=== PATIENT | male | born 1960 ===

== ENCOUNTER 2020-03-28 12:24 | Inpatient (IN) | payer OTHER ==
[2020-03-28 14:02] LABS: Bilirubin,Urine NEG (Negative); Blood,Urine MOD (Negative); Color,Urine Yellow (Yellow); Mucus,Urine FEW /HPF; Protein,Urine <15 mg/dL mg/dL (Negative)
[2020-03-28 14:08] LABS: Basophils % (Auto) 0.7 % (0.0-1.8); Eosinophils # (Auto) 0.2 K/mm3 (0.0-0.4); Eosinophils % (Auto) 3.2 % (0.0-4.3); Hematocrit 40.9 % (35.5-45.6); Hemoglobin 13.8 gm/dl (11.8-15.2); Lymphocytes # (Auto) 1.7 K/mm3 (1.2-5.4); Mean Corpuscular HGB Conc 34 % (32-34); Mean Corpuscular Volume 95 fl (84-94); Monocytes # (Auto) 0.6 K/mm3 (0.0-0.8); Monocytes % (Auto) 11.4 % (0.0-7.3); Platelet Count 276 K/mm3 (140-440); Red Blood Count 4.33 M/mm3 (3.65-5.03); Red Cell Distribution Width 13.8 % (13.2-15.2)
[2020-03-28 14:30] LABS: Albumin 4.8 g/dL (3.9-5); Calcium 10.6 mg/dL (8.4-10.2)
--- NOTE | 2020-03-28 16:45 | Emergency Department Report ---
ED Male HPI - General Chief complaint: Urogenital-Male Stated complaint: BLADDER ISSUE Time Seen by Provider: 03/28/20 16:19 Source: patient Mode of arrival: Ambulatory Limitations: No Limitations - History of Present Illness Initial comments: 60-year-old male with history of hypertension, presents to the ED with report of difficulty urinating. Patient states this is been going for quite some time. Patient had an appointment with Dr. Layton, urologist, 5 days ago and was told to come to the ED emergency room today. Patient states he is been able to urinate drops of urine. Does not currently feel like his bladder is full or distended. Patient does report some hematuria as well. Denies fever. MD Complaint: other -: unknown Radiation: none Severity: severe Consistency: intermittent Improves with: none Worsens with: none urinary retention, blood in urine. denies: fever, nausea/vomiting - Related Data Home Medications Medication Instructions Recorded Confirmed Last Taken Meloxicam [Mobic] 7.5 mg PO PRN 03/24/20 03/28/20 Unknown One-Daily Multi-Vitamin 1 mg PO DAILY 03/24/20 03/28/20 Unknown Simvastatin 40 mg PO DAILY 03/24/20 03/28/20 Unknown Tamsulosin 0.4 mg PO DAILY 03/24/20 03/28/20 Unknown amLODIPine 10 mg PO DAILY 03/24/20 03/28/20 Unknown hydroCHLOROthiazide 12.5 mg PO DAILY 03/24/20 03/28/20 Unknown [Hydrochlorothiazide] lisinopriL [Zestril TAB] 40 mg PO DAILY 03/24/20 03/28/20 Unknown Allergies Allergy/AdvReac Type Severity Reaction Status Date / Time Penicillins AdvReac Intermediate Rash Verified 03/24/20 12:41 ED Review of Systems ROS: Stated complaint: BLADDER ISSUE Other details as noted in HPI Comment: All other systems reviewed and negative Constitutional: denies: chills, fever Gastrointestinal: denies: abdominal pain, nausea, vomiting Genitourinary: other (reports difficulty urinating) ED Past Medical Hx - Past Medical History Previous Medical History?: Yes Hx Hypertension: Yes Hx GERD: No Hx Sickle Cell Disease: No Hx Tuberculosis: No Hx HIV: No - Surgical History Past Surgical History?: Yes Hx Appendectomy: Yes Additional Surgical History: "bladder blockage" - Social History Smoking Status: Never Smoker Substance Use Type: Alcohol - Medications Home Medications: Home Medications Medication Instructions Recorded Confirmed Last Taken Type Meloxicam [Mobic] 7.5 mg PO PRN 03/24/20 03/28/20 Unknown History One-Daily Multi-Vitamin 1 mg PO DAILY 03/24/20 03/28/20 Unknown History Simvastatin 40 mg PO DAILY 03/24/20 03/28/20 Unknown History Tamsulosin 0.4 mg PO DAILY 03/24/20 03/28/20 Unknown History amLODIPine 10 mg PO DAILY 03/24/20 03/28/20 Unknown History hydroCHLOROthiazide 12.5 mg PO DAILY 03/24/20 03/28/20 Unknown History [Hydrochlorothiazide] lisinopriL [Zestril TAB] 40 mg PO DAILY 03/24/20 03/28/20 Unknown History ED Physical Exam - General Limitations: No Limitations General appearance: alert, in no apparent distress - Head Head exam: Present: atraumatic, normocephalic - Eye Eye exam: Present: normal appearance, EOMI - ENT ENT exam: Present: mucous membranes moist - Neck Neck exam: Present: normal inspection - Respiratory Respiratory exam: Present: normal lung sounds bilaterally. Absent: respiratory distress - Cardiovascular Cardiovascular Exam: Present: regular rate, normal rhythm - GI/Abdominal GI/Abdominal exam: Present: soft. Absent: distended, tenderness - exam: Present: other (no bladder distention on exam) - Extremities Exam Extremities exam: Present: normal inspection - Neurological Exam Neurological exam: Present: alert, oriented X3 - Psychiatric Psychiatric exam: Present: normal affect, normal mood - Skin Skin exam: Present: warm, dry, intact, normal color ED Course Vital Signs 03/28/20 03/28/20 03/28/20 12:29 16:21 16:27 Temperature 98.6 F 98.6 F Pulse Rate 90 74 Respiratory 17 14 Rate Blood Pressure 139/80 Blood Pressure 156/84 [Right] O2 Sat by Pulse 99 99 100 Oximetry 03/28/20 03/28/20 03/28/20 16:30 16:46 17:00 Temperature Pulse Rate 86 79 78 Respiratory 18 22 13 Rate Blood Pressure 156/84 156/84 126/75 Blood Pressure [Right] O2 Sat by Pulse 99 99 100 Oximetry 03/28/20 03/28/20 03/28/20 17:27 17:30 17:46 Temperature Pulse Rate 94 H 87 Respiratory 22 13 Rate Blood Pressure 126/75 126/75 126/75 Blood Pressure [Right] O2 Sat by Pulse 79 L 98 97 Oximetry 03/28/20 03/28/20 03/28/20 18:00 18:16 18:30 Temperature Pulse Rate 86 82 79 Respiratory 14 19 17 Rate Blood Pressure 127/73 127/73 127/73 Blood Pressure [Right] O2 Sat by Pulse 98 98 99 Oximetry 03/28/20 03/28/20 03/28/20 18:46 19:00 19:16 Temperature Pulse Rate 84 79 83 Respiratory 11 L 17 27 H Rate Blood Pressure 127/73 106/64 106/64 Blood Pressure [Right] O2 Sat by Pulse 99 99 97 Oximetry 03/28/20 03/28/20 03/28/20 19:30 19:46 20:00 Temperature Pulse Rate 78 78 76 Respiratory 15 21 16 Rate Blood Pressure 106/64 106/64 115/70 Blood Pressure [Right] O2 Sat by Pulse 99 98 Oximetry 03/28/20 03/28/20 03/28/20 20:15 20:31 20:45 Temperature Pulse Rate 76 83 79 Respiratory 17 13 14 Rate Blood Pressure 106/64 106/64 106/64 Blood Pressure [Right] O2 Sat by Pulse 100 100 100 Oximetry 03/28/20 03/28/20 03/28/20 21:00 21:15 21:31 Temperature Pulse Rate 78 76 72 Respiratory 20 16 17 Rate Blood Pressure 122/71 115/70 115/70 Blood Pressure [Right] O2 Sat by Pulse 97 100 100 Oximetry 03/28/20 03/28/20 03/28/20 21:45 22:00 22:15 Temperature Pulse Rate 73 72 75 Respiratory 14 15 13 Rate Blood Pressure 115/70 107/66 107/66 Blood Pressure [Right] O2 Sat by Pulse 99 97 98 Oximetry 03/28/20 22:31 Temperature Pulse Rate 75 Respiratory 16 Rate Blood Pressure 107/66 Blood Pressure [Right] O2 Sat by Pulse 99 Oximetry - Consultations Consultation #1: 03/28/20 16:[address] Layton. States patient has a stricture. Wants to obtain CT scan and admit to hospitalist for cystoscopy. ED Medical Decision Making - Lab Data Result diagrams: 03/28/20 13:08 03/28/20 13:08 - Radiology Data Radiology results: report reviewed, image reviewed - Medical Decision Making Bladder wall thickening on CT. Labs unremarkable. Dr Layton at bedside to see patient. Pt admitted to hospitalist, Dr Rasheed. - Differential Diagnosis uretrhral stricture Critical care attestation.: If time is entered above; I have spent that time in minutes in the direct care of this critically ill patient, excluding procedure time. ED Disposition Clinical Impression: Urethral stricture Qualifiers: Urethral stricture type: unspecified stricture type Disposition: OP ADMIT IP TO THIS HOSP Is pt being admited?: Yes Condition: Stable Time of Disposition: 18:37
--- NOTE | 2020-03-28 17:53 | Cat Scan Report ---
CT OF THE ABDOMEN AND PELVIS WITH INTRAVENOUS CONTRAST INDICATION / CLINICAL INFORMATION: Difficulty urinating; history of bladder surgery. TECHNIQUE: The patient received 60 cc Omnipaque [address] scans at this location are performed u sing CT dose reduction for GABINORA by means of automated exposure control. COMPARISON: None available. FINDINGS: ABDOMEN: There are multiple simple renal cysts bilaterally, larger on the right than the left. The la rgest cyst measures 3.7 cm in the mid right kidney posterolaterally. The gallbladder is folded on its elf, but is normal in size without wall thickening or gallstones. The liver, spleen, bile ducts, panc reas, adrenal glands and bowel are normal. No adenopathy is seen. There is a moderate sized midline epigastric ventral hernia containing fat. The hernia sac measures 8 .7 cm transverse and the mouth of the hernia measures 2.6 cm transverse. No complication is seen. The lung bases are clear. PELVIS: There is mild to moderate diffuse thickening of the wall the urinary bladder. No discrete mas s is seen. There is mild to moderate enlargement of the prostate gland. There is no evidence of appen dicitis or diverticulitis. No abnormal mass or fluid collection is seen. There is a small fat-contain ing periumbilical hernia without complication. No acute osseous abnormality is seen. IMPRESSION: 1. Mild to moderate diffuse thickening of the wall the urinary bladder is likely related to hypertrop hy from chronic bladder outlet obstruction related to the enlarged prostate gland. 2. Moderate fat-containing epigastric ventral hernia without complication. Signer Name: Gilmar Rincon MD Signed: 03/28/2020 5:49 PM Workstation Name: [id number]
[2020-03-28] MEDS ORDERED: oxyCODONE /ACETAMINOPHEN 5-325MG TAB PO PRN (18:36)
[2020-03-28] MEDS ORDERED: ONDANSETRON 4 MG/2 ML INJ IV PRN (18:36)
--- NOTE | 2020-03-28 18:38 | History and Physical Report ---
History of Present Illness Chief complaint: It hurts when I urinate History of present illness: 60 YO Male with HTN,HLD presents to ED for evaluation. Patient states that he has experienced dysuria over the past 5 days with progressively worsening symptoms over the same timeframe. Patient notified his urologist today and was instructed [facility] Patient transported to [facility] via private vehicle for further care and evaluation. Patient seen and evaluated in the emergency department. Lab and imaging studies reviewed. Patient underwent CT scan which showed evidence of urinary obstruction likely secondary to urethral stricture, as well as urinary tract infection. Urology team notified and patient was seen and evaluated in the emergency department. Patient admitted to surgical floor for further evaluation. Patient treated with IV antibiotic therapy. Patient denies fever, chills, chest pain, palpitations, productive cough, skin rash, recent ill contacts. Past History Past Medical History: hypertension Past Surgical History: appendectomy Social history: no significant social history. denies: smoking, alcohol abuse Family history: hypertension Medications and Allergies Allergies Allergy/AdvReac Type Severity Reaction Status Date / Time Penicillins AdvReac Intermediate Rash Verified 03/24/20 12:41 Home Medications Medication Instructions Recorded Confirmed Last Taken Type Meloxicam [Mobic] 7.5 mg PO PRN 03/24/20 03/28/20 Unknown History One-Daily Multi-Vitamin 1 mg PO DAILY 03/24/20 03/28/20 Unknown History Simvastatin 40 mg PO DAILY 03/24/20 03/28/20 Unknown History Tamsulosin 0.4 mg PO DAILY 03/24/20 03/28/20 Unknown History amLODIPine 10 mg PO DAILY 03/24/20 03/28/20 Unknown History hydroCHLOROthiazide 12.5 mg PO DAILY 03/24/20 03/28/20 Unknown History [Hydrochlorothiazide] lisinopriL [Zestril TAB] 40 mg PO DAILY 03/24/20 03/28/20 Unknown History Active Meds: Active Medications Acetaminophen (Tylenol) 650 mg PO Q4H PRN PRN Reason: Pain MILD(1-3)/Fever >100.5/ORTEGA Ondansetron HCl (Zofran) 4 mg IV Q8H PRN PRN Reason: Nausea And Vomiting Sodium Chloride (Sodium Chloride Flush Syringe 10 Ml) 10 ml IV BID JOSE Sodium Chloride (Sodium Chloride Flush Syringe 10 Ml) 10 ml IV PRN PRN PRN Reason: LINE FLUSH Review of Systems Constitutional: no weight loss, no weight gain, no fever, no chills Ears, nose, mouth and throat: no ear pain, no ear discharge, no decreased hearing, no nose pain Cardiovascular: no chest pain, no orthopnea, no palpitations, no rapid/irregular heart beat, no syncope Respiratory: no cough, no cough with sputum, no hemoptysis, no shortness of breath, no dyspnea on exertion Gastrointestinal: no abdominal pain, no nausea, no vomiting Genitourinary Male: dysuria, hematuria, no flank pain, no discharge, no urinary frequency, no urinary hesitancy, no nocturia Rectal: no pain, no incontinence, no bleeding Musculoskeletal: no neck stiffness, no neck pain, no shooting arm pain, no arm numbness/tingling, no shooting leg pain Integumentary: no rash, no pruritis, no redness, no sores, no wounds Neurological: no head injury, no paralysis, no weakness, no parathesias, no numbness, no tingling Psychiatric: no anxiety, no sleep disturbances, no insomnia, no hypersomnia, no change in libido, no disorientation Endocrine: no cold intolerance, no heat intolerance, no polyphagia, no polydipsia, no excessive sweating, no flushing Hematologic/Lymphatic: no easy bruising, no easy bleeding, no lymphadenopathy, no lymphedema Allergic/Immunologic: no urticaria, no allergic rhinitis, no anaphylaxis, no angioedema Exam - Constitutional Vitals: Temp Pulse Resp BP Pulse Ox 98.6 F 74 18 156/84 100 03/28/20 16:27 03/28/20 16:27 03/28/20 16:27 03/28/20 16:27 03/28/20 16:27 General appearance: Present: mild distress - EENT Eyes: Present: PERRL ENT: hearing intact, clear oral mucosa - Neck Neck: Present: supple, normal ROM - Respiratory Respiratory effort: normal Respiratory: bilateral: CTA - Cardiovascular Heart Sounds: Present: S1 & S2. Absent: rub, click - Extremities Extremities: pulses symmetrical, No edema Peripheral Pulses: within normal limits - Abdominal General gastrointestinal: Present: soft, non-tender, non-distended, normal bowel sounds Male genitourinary: Present: normal - Integumentary Integumentary: Present: clear, warm, dry - Musculoskeletal Musculoskeletal: gait normal, strength equal bilaterally - Psychiatric Psychiatric: appropriate mood/affect, intact judgment & insight - Neurologic Neurologic: CNII-XII intact, moves all extremities Results - Labs CBC & Chem 7: 03/28/20 13:08 03/28/20 13:08 Labs: Abnormal lab results 03/28/20 03/28/20 03/28/20 Range/Units 13:08 13:08 13:28 MCV 95 H (84-94) fl [place] % (Auto) 11.4 H (0.0-7.3) % BUN 28 H (9-20) mg/dL Calcium 10.6 H (8.4-10.2) mg/dL Total Protein 8.6 H (6.3-8.2) g/dL Urine WBC (Auto) 12.0 H (0.0-6.0) /HPF Assessment and Plan - Patient Problems (1) Urethral stricture Current Visit: Yes Status: Acute Qualifiers: Urethral stricture type: unspecified stricture type Plan to address problem: Urology team consulted in ED. CT scan abdomen and pelvis, patient is status post Jara catheter placement in the emergency department by the urology service, supportive care. (2) HTN (hypertension) Current Visit: Yes Status: Acute Qualifiers: Hypertension type: essential hypertension Qualified Code(s): I10 - Essential (primary) hypertension Plan to address problem: Monitor blood pressure every shift. Continue prehospital antihypertensive therapy. (3) Volume depletion Current Visit: Yes Status: Acute (4) UTI (urinary tract infection) Current Visit: Yes Status: Acute Qualifiers: Encounter type: initial encounter Plan to address problem: CBC, BMP, urinalysis, IV antibiotic therapy. (5) DVT prophylaxis Current Visit: Yes Status: Acute Plan to address problem: SCD to bilateral lower extremities while in bed, patient is ambulatory
--- NOTE | 2020-03-28 18:43 | Consultation ---
History of Present Illness - Reason for Consult Consult date: 03/28/20 - History of Present Illness retention (stricture) 60 yr old male with voiding problems seen in office of urodynamics---unable to place coker presented to ER retention & hematuria CTAP---distended bladder cysto 10 yrs ago by another urologist SPT 14 F placed in ER--wendy colored urine ventral hernia from previous ulcer surgery A/P retention stricture needs cysto tomorrow npo after midnight Medications and Allergies Allergies Allergy/AdvReac Type Severity Reaction Status Date / Time Penicillins AdvReac Intermediate Rash Verified 03/24/20 12:41 Home Medications Medication Instructions Recorded Confirmed Last Taken Type Meloxicam [Mobic] 7.5 mg PO PRN 03/24/20 03/24/20 Unknown History One-Daily Multi-Vitamin 1 mg PO DAILY 03/24/20 03/24/20 Unknown History Simvastatin 40 mg PO DAILY 03/24/20 03/24/20 Unknown History Tamsulosin 0.4 mg PO DAILY 03/24/20 03/24/20 Unknown History amLODIPine 10 mg PO DAILY 03/24/20 03/24/20 Unknown History hydroCHLOROthiazide 12.5 mg PO DAILY 03/24/20 03/24/20 Unknown History [Hydrochlorothiazide] lisinopriL [Zestril TAB] 40 mg PO DAILY 03/24/20 03/24/20 Unknown History Active Meds: Active Medications Acetaminophen (Tylenol) 650 mg PO Q4H PRN PRN Reason: Pain MILD(1-3)/Fever >100.5/ORTEGA Ondansetron HCl (Zofran) 4 mg IV Q8H PRN PRN Reason: Nausea And Vomiting Oxycodone/Acetaminophen (Percocet 5/325) 1 tab PO Q6H PRN PRN Reason: Pain, Moderate (4-6) Sodium Chloride (Sodium Chloride Flush Syringe 10 Ml) 10 ml IV BID JOSE Sodium Chloride (Sodium Chloride Flush Syringe 10 Ml) 10 ml IV PRN PRN PRN Reason: LINE FLUSH Exam - Constitutional Vitals: Temp Pulse Resp BP Pulse Ox 98.6 F 74 18 156/84 100 03/28/20 16:27 03/28/20 16:27 03/28/20 16:27 03/28/20 16:27 05/26/20 16:27 Results - Labs CBC & Chem 7: 03/28/20 13:08 03/28/20 13:08 Labs: Abnormal lab results 03/28/20 03/28/20 03/28/20 Range/Units 13:08 13:08 13:28 MCV 95 H (84-94) fl [place] % (Auto) 11.4 H (0.0-7.3) % BUN 28 H (9-20) mg/dL Calcium 10.6 H (8.4-10.2) mg/dL Total Protein 8.6 H (6.3-8.2) g/dL Urine WBC (Auto) 12.0 H (0.0-6.0) /HPF
--- NOTE | 2020-03-28 18:44 | Post Operative Note ---
Date of procedure: 03/28/20 Pre-op diagnosis: retention, stricture Post-op diagnosis: same Procedure: spt place in ER 14F Anesthesia: SEYMOUR Surgeon: YUDITH PEREZ Estimated blood loss: none Pathology: none Condition: stable (needs cysto under anesthesia)
[2020-03-28] MEDS ORDERED: MELOXICAM 7.5 MG TAB PO SCH (21:00)
[2020-03-28] MEDS ORDERED: MELOXICAM 7.5 MG TAB PO PRN (21:08)
[2020-03-29] MEDS: PRAVASTATIN 80 MG TAB PO SCH ×2 (00:52→22:22)
[2020-03-29] MEDS ORDERED: NON-FORMULARY EACH (Tamsulosin 0.4 MG) PO SCH (10:00)
[2020-03-29] MEDS ORDERED: NON-FORMULARY EACH (Amlodipine 10 MG) PO SCH (10:00)
[2020-03-29] MEDS ORDERED: [UNRECOGNIZED DRUG - OTHER] PO SCH (10:00)
[2020-03-29] MEDS ORDERED: NON-FORMULARY EACH (Simvastatin [Simvastatin] 40 MG) PO SCH (10:00)
[2020-03-29] MEDS: amLODIPine 10 MG TAB PO SCH (10:21)
[2020-03-29] MEDS: TAMSULOSIN 0.4 MG CAP PO SCH (10:22)
[2020-03-29] MEDS: LISINOPRIL 40 MG TAB PO SCH (10:22)
[2020-03-29] MEDS: hydroCHLOROthiazide 12.5 MG CAP PO SCH (10:32)
[2020-03-29] MEDS: MULTIVITAMINS,THER W-MINERALS TAB PO SCH (10:32)
[2020-03-29] MEDS ORDERED: LIDOCAINE MPF (2%) 20 MG/1 ML VIAL 5 ML ONE (15:32)
[2020-03-29] MEDS ORDERED: HYDROmorphone 1 MG/1 ML INJ ONE (15:32)
[2020-03-29] MEDS ORDERED: propofoL 200 MG/20 ML VIAL IV ONE (15:32)
[2020-03-29] MEDS ORDERED: SODIUM CHLORIDE 0.9% 1000 ML 1,000 ML ONE (16:09)
[2020-03-29] MEDS ORDERED: WATER FOR IRRIG STERILE 1,500 ML BOTTLE IR ONE (16:14)
[2020-03-29] MEDS ORDERED: WATER FOR IRRIG STERILE 2000 ML IR ONE (16:14)
[2020-03-29] MEDS ORDERED: PHENYLEPHRINE/NS 1,000 MCG/10 ML SYRINGE (OR USE) IV ONE (16:56)
--- NOTE | 2020-03-29 17:09 | Progress Note ---
Assessment and Plan - Patient Problems (1) Urethral stricture Current Visit: Yes Status: Acute Qualifiers: Urethral stricture type: unspecified stricture type Plan to address problem: Urology team consulted in ED. CT scan abdomen and pelvis, patient is status post suprapubic catheter placement in the emergency department by the urology service, supportive care. Cystoscopy today as per urology service (2) HTN (hypertension) Current Visit: Yes Status: Acute Qualifiers: Hypertension type: essential hypertension Qualified Code(s): I10 - Essential (primary) hypertension Plan to address problem: Monitor blood pressure every shift. Continue prehospital antihypertensive therapy. (3) Volume depletion Current Visit: Yes Status: Acute (4) UTI (urinary tract infection) Current Visit: Yes Status: Acute Qualifiers: Encounter type: initial encounter Plan to address problem: CBC, BMP, urinalysis, IV antibiotic therapy. (5) DVT prophylaxis Current Visit: Yes Status: Acute Plan to address problem: SCD to bilateral lower extremities while in bed, patient is ambulatory History Interval history: 60 YO Male HD #2 with Urinary Stricture, UTI, and Volume depletion. Patient resting comfortably in bed. Patient pending surgical intervention as per urology. Patient pending cystoscopy today. Patient denies fever, chills, chest pain, palpitations, shortness of breath, nausea, vomiting, hematuria. No reported nursing events. Hospitalist Physical - Constitutional Vitals: Temp Pulse Resp BP Pulse Ox 98.8 F 75 18 109/69 97 03/29/20 16:05 03/29/20 16:05 03/29/20 16:05 03/29/20 16:05 03/29/20 16:05 General appearance: Present: mild distress - EENT Eyes: Present: PERRL, EOM intact ENT: hearing intact - Neck Neck: Present: supple - Respiratory Respiratory effort: normal Respiratory: bilateral: CTA - Cardiovascular Rhythm: regular Heart Sounds: Present: S1 & S2 - Extremities Extremities: no ischemia, pulses intact Peripheral Pulses: within normal limits - Abdominal General gastrointestinal: soft, non-distended, other (Suprapubic tube in place) - Integumentary Integumentary: Present: clear, warm, dry - Psychiatric Psychiatric: appropriate mood/affect, cooperative - Neurologic Neurologic: CNII-XII intact Results - Labs CBC & Chem 7: 03/28/20 13:08 03/28/20 13:08 Labs: Laboratory Last Values WBC 4.9 K/mm3 (4.5-11.0) 03/28/20 13:08 RBC 4.33 M/mm3 (3.65-5.03) 03/28/20 13:08 Hgb 13.8 gm/dl (11.8-15.2) 03/28/20 13:08 Hct 40.9 % (35.5-45.6) 03/28/20 13:08 MCV 95 fl (84-94) H 03/28/20 13:08 MCH 32 pg (28-32) 03/28/20 13:08 MCHC 34 % (32-34) 03/28/20 13:08 RDW 13.8 % (13.2-15.2) 03/28/20 13:08 Plt Count 276 K/mm3 (140-440) 03/28/20 13:08 Lymph % (Auto) 34.0 % (13.4-35.0) 03/28/20 13:08 [place] % (Auto) 11.4 % (0.0-7.3) H 03/28/20 13:08 Eos % (Auto) 3.2 % (0.0-4.3) 03/28/20 13:08 Baso % (Auto) 0.7 % (0.0-1.8) 03/28/20 13:08 Lymph # 1.7 K/mm3 (1.2-5.4) 03/28/20 13:08 [place] # 0.6 K/mm3 (0.0-0.8) 03/28/20 13:08 Eos # 0.2 K/mm3 (0.0-0.4) 03/28/20 13:08 Baso # 0.0 K/mm3 (0.0-0.1) 03/28/20 13:08 Seg Neutrophils % 50.7 % (40.0-70.0) 03/28/20 13:08 Seg Neutrophils # 2.5 K/mm3 (1.8-7.7) 03/28/20 13:08 Sodium 139 mmol/L (137-145) 03/28/20 13:08 Potassium 4.7 mmol/L (3.6-5.0) 03/28/20 13:08 Chloride 99.1 mmol/L (98-107) 03/28/20 13:08 Carbon Dioxide 27 mmol/L (22-30) 03/28/20 13:08 Anion Gap 18 mmol/L 03/28/20 13:08 BUN 28 mg/dL (9-20) H 03/28/20 13:08 Creatinine 1.5 mg/dL (0.8-1.5) 03/28/20 13:08 Estimated GFR 48 ml/min 03/28/20 13:08 BUN/Creatinine Ratio 19 % 03/28/20 13:08 Glucose 99 mg/dL (75-100) 03/28/20 13:08 Calcium 10.6 mg/dL (8.4-10.2) H 03/28/20 13:08 Total Bilirubin 0.40 mg/dL (0.1-1.2) 03/28/20 13:08 AST 17 units/L (5-40) 03/28/20 13:08 ALT 15 units/L (7-56) 03/28/20 13:08 Alkaline Phosphatase 64 units/L (35-129) 03/28/20 13:08 Total Protein 8.6 g/dL (6.3-8.2) H 03/28/20 13:08 Albumin 4.8 g/dL (3.9-5) 03/28/20 13:08 Albumin/Globulin Ratio 1.3 % 03/28/20 13:08 Urine Color Yellow (Yellow) 03/28/20 13:28 Urine Turbidity Hazy (Clear) 03/28/20 13:28 Urine pH 6.0 (5.0-7.0) 03/28/20 13:28 Ur Specific Musella 1.021 (1.003-1.030) 03/28/20 13:28 Urine Protein <15 mg/dl mg/dL (Negative) 03/28/20 13:28 Urine Glucose (UA) Neg mg/dL (Negative) 03/28/20 13:28 Urine Ketones Neg mg/dL (Negative) 03/28/20 13:28 Urine Blood Mod (Negative) 03/28/20 13:28 Urine Nitrite Neg (Negative) 03/28/20 13:28 Urine Bilirubin Neg (Negative) 03/28/20 13:28 Urine Urobilinogen 2.0 mg/dL (<2.0) 03/28/20 13:28 Ur Leukocyte Esterase Tr (Negative) 03/28/20 13:28 Urine WBC (Auto) 12.0 /HPF (0.0-6.0) H 03/28/20 13:28 Urine RBC (Auto) 28.0 /HPF (0.0-6.0) 03/28/20 13:28 U Epithel Cells (Auto) < 1.0 /HPF (0-13.0) 03/28/20 13:28 Urine Mucus Few /HPF 03/28/20 13:28 Microbiology: Microbiology 03/28/20 13:28 Urine,Clean Catch Urine Culture - Preliminary NO GROWTH AFTER 24 HOURS Jara/IV: Voiding Method Suprapubic catheter IV Catheter Type [Right Peripheral IV Antecubital] Active Medications - Current Medications Current Medications: Generic Name Dose Route Start Last Admin Trade Name Freq PRN Reason Stop Dose Admin Acetaminophen 650 mg 03/28/20 18:36 Tylenol PO Q4H PRN Pain MILD(1-3)/Fever >100.5/ORTEGA Amlodipine Besylate 10 mg 03/29/20 10:00 03/29/20 10:21 Amlodipine PO 10 mg DAILY [facility] Administration Hydrochlorothiazide 12.5 mg 03/29/20 10:00 03/29/20 10:32 Hctz PO Not Given DAILY [facility] Levofloxacin/Dextrose 500 mg in 100 mls @ 100 mls/hr 03/28/20 20:47 03/29/20 10:21 Levaquin 500mg/100ml IV 100 mls/hr Q24HR JOSE Administration Protocol Lisinopril 40 mg 03/29/20 10:00 03/29/20 10:22 Zestril PO 40 mg DAILY [facility] Administration Meloxicam 7.5 mg 03/28/20 21:08 Mobic PO QDAY PRN ARTHRITIS PAIN Multivitamins/Minerals 1 each 03/29/20 10:00 03/29/20 10:32 Theragran-M Tab PO Not Given QDAY [facility] Ondansetron HCl 4 mg 03/28/20 18:36 Zofran IV Q8H PRN Nausea And Vomiting Oxycodone/Acetaminophen 1 tab 03/28/20 18:36 Percocet 5/325 PO Q6H PRN Pain, Moderate (4-6) Pravastatin Sodium 80 mg 03/28/20 22:00 03/29/20 00:52 Pravachol PO 80 mg QHS JOSE Administration Sodium Chloride 10 ml 03/28/20 22:00 03/29/20 10:32 Sodium Chloride Flush Syringe 10 Ml IV 10 ml BID JOSE Administration Sodium Chloride 10 ml 03/28/20 18:36 Sodium Chloride Flush Syringe 10 Ml IV PRN PRN LINE FLUSH Tamsulosin HCl 0.4 mg 03/29/20 10:00 03/29/20 10:22 Flomax PO 0.4 mg QDAY JOSE Administration
--- NOTE | 2020-03-29 17:09 | Post Operative Note ---
Date of procedure: 03/29/20 Pre-op diagnosis: urethral stricture Post-op diagnosis: same Procedure: cysto, DVIU,removed Anesthesia: [facility] Surgeon: YUDITH PEREZ Estimated blood loss: none Condition: stable Disposition: PACU (home with coker---bactrim & norco on chart)
--- NOTE | 2020-03-29 17:24 | Fluoroscopy Report ---
INTRAOPERATIVE FLUOROSCOPY: CYSTOGRAM INDICATION / CLINICAL INFORMATION: URINARY RETENTION. TECHNIQUE: Intraoperative spot images were obtained during the procedure. FINDINGS: Images were obtained during cystography. See operative note for full detail. Fluoroscopy Time: 10 seconds. Fluoroscopy Images: 3. Omnipaque 300 was used for contrast. Signer Name: Chava Sheppard MD Signed: 03/29/2020 5:20 PM Workstation Name: [id number]
--- NOTE | 2020-03-29 17:26 | Anesthesia Day of Surgery ---
Anesthesia Day of Surgery - Day of Surgery Patient Examined: Yes Patient H&P Reviewed: Yes Patient is NPO: Yes
[2020-03-29] MEDS ORDERED: fentaNYL 100 MCG/2 ML INJ IV PRN (17:31)
[2020-03-29] MEDS ORDERED: ONDANSETRON 4 MG/2 ML INJ IV PRN (17:31)
--- NOTE | 2020-03-29 17:31 | Post Anesthesia Evaluation ---
- Post Anesthesia Evaluation Patient Participated: Yes Airway Patent: Yes Stable Respiratory Function: Yes Nausea/Vomiting: No Temp > 96.8F: Yes Pain Manageable: Yes Adequeate Hydration: Yes Anesthesia Complications: No Block Receding Appropriately: Not Applicable Patient on Ventilator: No
--- NOTE | 2020-03-29 17:31 | Anesthesia Consultation ---
Anesthesia Consult and Med Hx Date of service: 03/29/20 - Airway Anesthetic Teeth Evaluation: Caps Mallampati Class: Class II Intubation Access Assessment: Good - Pre-Operative Health Status ASA Pre-Surgery Classification: ASA2 Proposed Anesthetic Plan: General - Pulmonary Hx Smoking: Yes Hx Asthma: No COPD: No Hx Pneumonia: No Hx Sleep Apnea: No (SNORES) - Cardiovascular System Hx Hypertension: Yes - Central Nervous System Hx Psychiatric Problems: No - Endocrine Hx End Stage Renal Disease: No - Hematic Hx Anemia: No Hx Sickle Cell Disease: No - Other Systems Hx Alcohol Use: Yes (OCC. BEER,WINE) Hx Substance Use: No Hx Cancer: No
--- NOTE | 2020-03-29 17:54 | Operative Report ---
PREOPERATIVE DIAGNOSIS: Dense urethral stricture. POSTOPERATIVE DIAGNOSIS: Dense urethral stricture. PROCEDURE: Cystoscopy, direct vision internal urethrotomy. Cystogram, removal of suprapubic catheter. SURGEON: Joel Layton MD ANESTHESIA: General. ESTIMATED BLOOD LOSS: Minimal. FLUIDS: Crystalloid. COMPLICATIONS: No complications. INDICATIONS: This 60-year-old gentleman was seen in the office, difficulty urinating. Attempted cystoscopy to place a Jara unsuccessfully. We set him up electively for a cystoscopy. He ended up in the Emergency Room with urinary retention. CT revealed a distended bladder. Emergently, I placed a suprapubic catheter in the Emergency Room. He was admitted for IV antibiotics and presents now for intervention. DESCRIPTION OF PROCEDURE: The patient was taken to the operative suite, placed in a supine position. After adequate general anesthesia, placed in a dorsal lithotomy position, prepped and draped in a sterile fashion. Urethroscopy was performed with a cold knife. The patient had dense bulbar stricture. A small opening could be cannulated at the 5 o'clock position. A cut at the 12 o'clock position, allowed insertion into the bladder. The patient had ____, it was difficult to see the ureteral orifices; however, did not see any large tumor endoscopically. On his CT, there was no indication of a large tumor as well. A 16-Arabic [place] tip catheter was advanced. Cystogram was performed. Good position. Suprapubic catheter was removed. Rectal exam was benign. He was extubated and taken to recovery room. He will be observed and go home on B[place] and [place]. JOB# [id number] [facility]
[2020-03-29] MEDS: ACETAMINOPHEN 325 MG TAB PO PRN (22:26)
[2020-03-30] MEDS: hydroCHLOROthiazide 12.5 MG CAP PO SCH (09:32)
[2020-03-30] MEDS: MULTIVITAMINS,THER W-MINERALS TAB PO SCH (09:32)
[2020-03-30] MEDS: TAMSULOSIN 0.4 MG CAP PO SCH (09:32)
[2020-03-30] MEDS: amLODIPine 10 MG TAB PO SCH (11:54)
[2020-03-30] MEDS: LISINOPRIL 40 MG TAB PO SCH (11:54)
--- NOTE | 2020-03-30 17:15 | Progress Note ---
Assessment and Plan - Patient Problems (1) Urethral stricture Current Visit: Yes Status: Acute Qualifiers: Urethral stricture type: unspecified stricture type Plan to address problem: Urology team consulted in ED, patient is status post suprapubic catheter placement in the emergency department by the urology service, supportive care. Cystoscopy today as per urology service. Discharge planning in a.m. if no further surgical intervention. (2) HTN (hypertension) Current Visit: Yes Status: Acute Qualifiers: Hypertension type: essential hypertension Qualified Code(s): I10 - Essential (primary) hypertension Plan to address problem: Monitor blood pressure every shift. Continue prehospital antihypertensive therapy. (3) Volume depletion Current Visit: Yes Status: Acute Plan to address problem: IV fluid resuscitation therapy, supportive care. (4) UTI (urinary tract infection) Current Visit: Yes Status: Acute Qualifiers: Encounter type: initial encounter Plan to address problem: CBC, BMP, urinalysis, IV antibiotic therapy. (5) DVT prophylaxis Current Visit: Yes Status: Acute Plan to address problem: SCD to bilateral lower extremities while in bed, patient is ambulatory History Interval history: 60 YO Male HD #3 with Urinary Stricture, UTI, and Volume depletion. Patient resting comfortably in bed. Patient pending surgical intervention as per urology. Patient pending cystoscopy as per urology service. Patient denies fever, chills, chest pain, palpitations, shortness of breath, nausea, vomiting, hematuria. No reported nursing events. Discharge planning in a.m. if no further surgical intervention. Hospitalist Physical - Constitutional Vitals: Temp Pulse Resp BP Pulse Ox 98.4 F 80 18 108/67 99 03/30/20 15:57 03/30/20 15:57 03/30/20 15:57 03/30/20 15:57 03/30/20 15:57 General appearance: Present: mild distress - EENT Eyes: Present: PERRL, EOM intact ENT: hearing intact - Neck Neck: Present: supple - Respiratory Respiratory: bilateral: CTA - Cardiovascular Rhythm: regular Heart Sounds: Present: S1 & S2 - Extremities Extremities: no ischemia, pulses intact Peripheral Pulses: within normal limits - Abdominal General gastrointestinal: soft, non-tender, non-distended - Integumentary Integumentary: Present: clear, warm, dry - Psychiatric Psychiatric: appropriate mood/affect, cooperative - Neurologic Neurologic: CNII-XII intact Results - Labs CBC & Chem 7: 03/28/20 13:08 03/28/20 13:08 Labs: Laboratory Last Values WBC 4.9 K/mm3 (4.5-11.0) 03/28/20 13:08 RBC 4.33 M/mm3 (3.65-5.03) 03/28/20 13:08 Hgb 13.8 gm/dl (11.8-15.2) 03/28/20 13:08 Hct 40.9 % (35.5-45.6) 03/28/20 13:08 MCV 95 fl (84-94) H 03/28/20 13:08 MCH 32 pg (28-32) 03/28/20 13:08 MCHC 34 % (32-34) 03/28/20 13:08 RDW 13.8 % (13.2-15.2) 03/28/20 13:08 Plt Count 276 K/mm3 (140-440) 03/28/20 13:08 Lymph % (Auto) 34.0 % (13.4-35.0) 03/28/20 13:08 [place] % (Auto) 11.4 % (0.0-7.3) H 03/28/20 13:08 Eos % (Auto) 3.2 % (0.0-4.3) 03/28/20 13:08 Baso % (Auto) 0.7 % (0.0-1.8) 03/28/20 13:08 Lymph # 1.7 K/mm3 (1.2-5.4) 03/28/20 13:08 [place] # 0.6 K/mm3 (0.0-0.8) 03/28/20 13:08 Eos # 0.2 K/mm3 (0.0-0.4) 03/28/20 13:08 Baso # 0.0 K/mm3 (0.0-0.1) 03/28/20 13:08 Seg Neutrophils % 50.7 % (40.0-70.0) 03/28/20 13:08 Seg Neutrophils # 2.5 K/mm3 (1.8-7.7) 03/28/20 13:08 Sodium 139 mmol/L (137-145) 03/28/20 13:08 Potassium 4.7 mmol/L (3.6-5.0) 03/28/20 13:08 Chloride 99.1 mmol/L (98-107) 03/28/20 13:08 Carbon Dioxide 27 mmol/L (22-30) 03/28/20 13:08 Anion Gap 18 mmol/L 03/28/20 13:08 BUN 28 mg/dL (9-20) H 03/28/20 13:08 Creatinine 1.5 mg/dL (0.8-1.5) 03/28/20 13:08 Estimated GFR 48 ml/min 03/28/20 13:08 BUN/Creatinine Ratio 19 % 03/28/20 13:08 Glucose 99 mg/dL (75-100) 03/28/20 13:08 Calcium 10.6 mg/dL (8.4-10.2) H 03/28/20 13:08 Total Bilirubin 0.40 mg/dL (0.1-1.2) 03/28/20 13:08 AST 17 units/L (5-40) 03/28/20 13:08 ALT 15 units/L (7-56) 03/28/20 13:08 Alkaline Phosphatase 64 units/L (35-129) 03/28/20 13:08 Total Protein 8.6 g/dL (6.3-8.2) H 03/28/20 13:08 Albumin 4.8 g/dL (3.9-5) 03/28/20 13:08 Albumin/Globulin Ratio 1.3 % 03/28/20 13:08 Urine Color Yellow (Yellow) 03/28/20 13:28 Urine Turbidity Hazy (Clear) 03/28/20 13:28 Urine pH 6.0 (5.0-7.0) 03/28/20 13:28 Ur Specific [place] 1.021 (1.003-1.030) 03/28/20 13:28 Urine Protein <15 mg/dl mg/dL (Negative) 03/28/20 13:28 Urine Glucose (UA) Neg mg/dL (Negative) 03/28/20 13:28 Urine Ketones Neg mg/dL (Negative) 03/28/20 13:28 Urine Blood Mod (Negative) 03/28/20 13:28 Urine Nitrite Neg (Negative) 03/28/20 13:28 Urine Bilirubin Neg (Negative) 03/28/20 13:28 Urine Urobilinogen 2.0 mg/dL (<2.0) 03/28/20 13:28 Ur Leukocyte Esterase Tr (Negative) 03/28/20 13:28 Urine WBC (Auto) 12.0 /HPF (0.0-6.0) H 03/28/20 13:28 Urine RBC (Auto) 28.0 /HPF (0.0-6.0) 03/28/20 13:28 U Epithel Cells (Auto) < 1.0 /HPF (0-13.0) 03/28/20 13:28 Urine Mucus Few /HPF 03/28/20 13:28 Microbiology: Microbiology 03/28/20 13:28 Urine,Clean Catch Urine Culture - Final NO GROWTH AFTER 48 HOURS Jara/IV: Voiding Method Indwelling Catheter IV Catheter Type [Right Peripheral IV Antecubital] Active Medications - Current Medications Current Medications: Generic Name Dose Route Start Last Admin Trade Name Freq PRN Reason Stop Dose Admin Acetaminophen 650 mg 03/28/20 18:36 03/29/20 22:26 Tylenol PO 650 mg Q4H PRN Administration Pain MILD(1-3)/Fever >100.5/ORTEGA Amlodipine Besylate 10 mg 03/29/20 10:00 03/30/20 11:54 Amlodipine PO Not Given DAILY [facility] Fentanyl 50 mcg 03/29/20 17:31 Sublimaze IV Q5MIN PRN Pain , Severe (7-10) Hydrochlorothiazide 12.5 mg 03/29/20 10:00 03/30/20 09:32 Hctz PO 12.5 mg DAILY JOSE Administration Levofloxacin/Dextrose 500 mg in 100 mls @ 100 mls/hr 03/28/20 20:47 03/30/20 09:32 Levaquin 500mg/100ml IV 100 mls/hr Q24HR JOSE Administration Protocol Lisinopril 40 mg 03/29/20 10:00 03/30/20 11:54 Zestril PO Not Given DAILY [facility] Meloxicam 7.5 mg 03/28/20 21:08 Mobic PO QDAY PRN ARTHRITIS PAIN Multivitamins/Minerals 1 each 03/29/20 10:00 03/30/20 09:32 Theragran-M Tab PO 1 each QDAY JOSE Administration Ondansetron HCl 4 mg 03/28/20 18:36 Zofran IV Q8H PRN Nausea And Vomiting Oxycodone/Acetaminophen 1 tab 03/28/20 18:36 Percocet 5/325 PO Q6H PRN Pain, Moderate (4-6) Pravastatin Sodium 80 mg 03/28/20 22:00 03/29/20 22:22 Pravachol PO 80 mg QHS JOSE Administration Sodium Chloride 10 ml 03/28/20 22:00 03/30/20 09:38 Sodium Chloride Flush Syringe 10 Ml IV 10 ml BID JOSE Administration Sodium Chloride 10 ml 03/28/20 18:36 Sodium Chloride Flush Syringe 10 Ml IV PRN PRN LINE FLUSH Tamsulosin HCl 0.4 mg 03/29/20 10:00 03/30/20 09:32 Flomax PO 0.4 mg QDAY JOSE Administration
[2020-03-30] MEDS: ACETAMINOPHEN 325 MG TAB PO PRN (21:15)
[2020-03-30] MEDS: PRAVASTATIN 80 MG TAB PO SCH (22:18)
[2020-03-31] MEDS ORDERED: levoFLOXacin 500 MG TAB PO SCH (10:00)
[2020-03-31] MEDS: hydroCHLOROthiazide 12.5 MG CAP PO SCH (10:38)
[2020-03-31] MEDS: TAMSULOSIN 0.4 MG CAP PO SCH (10:38)
[2020-03-31] MEDS: MULTIVITAMINS,THER W-MINERALS TAB PO SCH (10:38)
[2020-03-31] MEDS: LISINOPRIL 40 MG TAB PO SCH (10:40)
[2020-03-31] MEDS: amLODIPine 10 MG TAB PO SCH (10:40)
--- NOTE | 2020-03-31 11:01 | Discharge Summary ---
Providers - Providers Date of Admission: 03/28/20 18:36 Attending physician: AILYN CHÁVEZ 03/28/20 18:37 Consult to Physician [CONS] Stat Comment: Consulting Provider: YUDITH PEREZ Physician Instructions: Reason For Exam: difficulty urinating Primary care physician: JOSE DICK MD Hospitalization Condition: Stable Procedures: Cystoscopy Hospital course: 60 YO Male with HTN,HLD presented to ED for evaluation. Patient stated that he had experienced dysuria over the previous 5 days with progressively worsening symptoms over the same timeframe. Patient notified his urologist and was instructed to seek medical care at [facility]. Patient transported to [facility] via private vehicle for further care and evaluation. Patient seen and evaluated in the emergency department. Lab and imaging studies reviewed. Patient underwent CT scan which showed evidence of urinary obstruction likely secondary to urethral stricture, as well as urinary tract infection. Urology team notified and patient was seen and evaluated in the emergency department. Patient admitted to surgical floor for further evaluation. Patient treated with IV antibiotic therapy. Patient taken to the operating room on hospital day 2 for cystoscopy and surgical intervention for urethral stricture. Patient convalesced well during hospital course. Patient was maintained on Jara leg bag postoperatively. Patient Jara was monitored to ensure patency. Patient Jara remained patent during hospital course with minimal hematuria. Patient medically optimized and subsequently discharged home with Jara leg bag. Patient seen and evaluated prior to discharge but no significant physical exam findings. Patient discharged home instructed to follow-up with urology service as instructed. 35 minutes dedicated to patient discharge and coordination of care. Disposition: TO HOME OR SELFCARE - Discharge Diagnoses (1) Urethral stricture Status: Acute Qualifiers: Urethral stricture type: unspecified stricture type (2) HTN (hypertension) Status: Acute Qualifiers: Hypertension type: essential hypertension Qualified Code(s): I10 - Essential (primary) hypertension (3) Volume depletion Status: Acute (4) UTI (urinary tract infection) Status: Acute Qualifiers: Encounter type: initial encounter (5) DVT prophylaxis Status: Acute Core Measure Documentation - Palliative Care Palliative Care/ Comfort Measures: Not Applicable - Core Measures Any of the following diagnoses?: none Exam - Constitutional Vitals: Temp Pulse Resp BP Pulse Ox 98.8 F 75 20 100/66 100 03/31/20 08:00 03/31/20 10:40 03/31/20 08:00 03/31/20 10:40 03/31/20 08:00 General appearance: Present: no acute distress, well-nourished - EENT Eyes: Present: PERRL ENT: hearing intact, clear oral mucosa - Neck Neck: Present: supple, normal ROM - Respiratory Respiratory effort: normal Respiratory: bilateral: CTA - Cardiovascular Heart Sounds: Present: S1 & S2. Absent: rub, click - Extremities Extremities: pulses symmetrical, No edema Peripheral Pulses: within normal limits - Abdominal General gastrointestinal: Present: soft, non-tender, non-distended, normal bowel sounds Male genitourinary: Present: normal (Jara catheter in place) - Integumentary Integumentary: Present: clear, warm, dry - Musculoskeletal Musculoskeletal: gait normal, strength equal bilaterally - Psychiatric Psychiatric: appropriate mood/affect, intact judgment & insight - Neurologic Neurologic: CNII-XII intact, moves all extremities Plan Activity: advance as tolerated Diet: regular Follow up with: PRIMARY CARE, [Referring] - 3-5 Days
[2020-03-31 11:44] VITALS: BP 108/71
--- NOTE | 2020-03-31 12:59 | Progress Note ---
Subjective Date of service: 03/31/20 Interval history: 60 yr old male with voiding problems seen in office of urodynamics---unable to place coker presented to ER retention & hematuria CTAP---distended bladder cysto 10 yrs ago by another urologist coker draining A/P retention stricture home with coker Objective - Constitutional Vitals: Vital Signs - 12hr 03/31/20 03/31/20 03/31/20 04:30 08:00 10:40 Temperature 98.3 F 98.8 F Pulse Rate 70 75 75 Respiratory 20 20 Rate Blood Pressure 100/66 Blood Pressure 102/72 100/66 [Right] O2 Sat by Pulse 98 100 Oximetry 03/31/20 11:00 Temperature 97.2 F L Pulse Rate 71 Respiratory 20 Rate Blood Pressure Blood Pressure 108/71 [Right] O2 Sat by Pulse 99 Oximetry - Labs CBC & Chem 7: 03/28/20 13:08 03/28/20 13:08 Medications & Allergies - Medications Allergies/Adverse Reactions: Allergies Penicillins Adverse Reaction (Intermediate, Verified 03/24/20 12:41) Rash Home Medications: Home Medications Medication Instructions Recorded Confirmed Last Taken Type Meloxicam [Mobic] 7.5 mg PO PRN 03/24/20 03/28/20 Unknown History One-Daily Multi-Vitamin 1 mg PO DAILY 03/24/20 03/28/20 Unknown History Simvastatin 40 mg PO DAILY 03/24/20 03/28/20 Unknown History Tamsulosin 0.4 mg PO DAILY 03/24/20 03/28/20 Unknown History amLODIPine 10 mg PO DAILY 03/24/20 03/28/20 Unknown History hydroCHLOROthiazide 12.5 mg PO DAILY 03/24/20 03/28/20 Unknown History [Hydrochlorothiazide] lisinopriL [Zestril TAB] 40 mg PO DAILY 03/24/20 03/28/20 Unknown History Active Medications: Generic Name Dose Route Start Last Admin Trade Name Freq PRN Reason Stop Dose Admin Acetaminophen 650 mg 03/28/20 18:36 03/30/20 21:15 Tylenol PO 650 mg Q4H PRN Administration Pain MILD(1-3)/Fever >100.5/ROTEGA Amlodipine Besylate 10 mg 03/29/20 10:00 03/31/20 10:40 Amlodipine PO 10 mg DAILY JOSE Administration Fentanyl 50 mcg 03/29/20 17:31 Sublimaze IV Q5MIN PRN Pain , Severe (7-10) Hydrochlorothiazide 12.5 mg 03/29/20 10:00 03/31/20 10:38 Hctz PO 12.5 mg DAILY JOSE Administration Levofloxacin 500 mg 03/31/20 10:00 03/31/20 10:38 Levaquin PO 500 mg Q24HR JOSE Administration Lisinopril 40 mg 03/29/20 10:00 03/31/20 10:40 Zestril PO 40 mg DAILY JOSE Administration Meloxicam 7.5 mg 03/28/20 21:08 Mobic PO QDAY PRN ARTHRITIS PAIN Multivitamins/Minerals 1 each 03/29/20 10:00 03/31/20 10:38 Theragran-M Tab PO 1 each QDAY JOSE Administration Ondansetron HCl 4 mg 03/28/20 18:36 Zofran IV Q8H PRN Nausea And Vomiting Oxycodone/Acetaminophen 1 tab 03/28/20 18:36 Percocet 5/325 PO Q6H PRN Pain, Moderate (4-6) Pravastatin Sodium 80 mg 03/28/20 22:00 03/30/20 22:18 Pravachol PO 80 mg QHS JOSE Administration Sodium Chloride 10 ml 03/28/20 22:00 03/30/20 22:20 Sodium Chloride Flush Syringe 10 Ml IV 10 ml BID JOSE Administration Sodium Chloride 10 ml 03/28/20 18:36 Sodium Chloride Flush Syringe 10 Ml IV PRN PRN LINE FLUSH Tamsulosin HCl 0.4 mg 03/29/20 10:00 03/31/20 10:38 Flomax PO 0.4 mg QDAY JOSE Administration
== END 2020-03-31 15:00 | disposition home or self-care (01) | DRG 671 ==
LOC: ED 12:24 → 3A 18:36 → 3B-SURG 22:12
PROVIDERS: ADMIT Internal Medicine; ATTEND Internal Medicine
PROC: 0TJB8ZZ Inspection of Bladder, Via Natural or Artificial Opening Endoscopic (ICD-10-PCS; principal; 2020-03-29)
PROC: 0T7D4ZZ Dilation of Urethra, Percutaneous Endoscopic Approach (ICD-10-PCS; 2020-03-29)
PROC: BT1B1ZZ Fluoroscopy of Bladder and Urethra using Low Osmolar Contrast (ICD-10-PCS; 2020-03-29)
PROC: 0TPBX0Z Removal of Drainage Device from Bladder, External Approach (ICD-10-PCS; 2020-03-29)
DX: N35.919 Unspecified urethral stricture, male, unspecified site (principal); N39.0 Urinary tract infection, site not specified; Z88.0 Allergy status to penicillin; I10 Essential (primary) hypertension; Z90.49 Acquired absence of other specified parts of digestive tract; E78.5 Hyperlipidemia, unspecified; Z82.49 Family history of ischemic heart disease and other diseases of the circulatory system; E86.9 Volume depletion, unspecified
CPT/HCPCS: 36415; 74177; 74430; 80053; 81001; 85025; 87086; G0378; A4217; A9270-GY; C1758; C1769; C2627; J1170; J1956; J2370; J2704; J7030; Q9967